=== PATIENT | male | born 1935 | race Caucasian/White ===

== ENCOUNTER → 2017-12-27 | Outpatient (CLI) | payer OTHER | LOC: SLEEPLAB 13:04 | DX: G47.33 Obstructive sleep apnea (adult) (pediatric) (principal) ==

== ENCOUNTER → 2018-02-10 | Outpatient (CLI) | payer OTHER | LOC: RAD 11:49 | DX: J45.909 Unspecified asthma, uncomplicated (principal); R63.4 Abnormal weight loss; G47.33 Obstructive sleep apnea (adult) (pediatric) ==